=== PATIENT | female | born 1975 | race Caucasian/White ===

== ENCOUNTER 2018-05-27 21:38 | Emergency (ER) | payer MEDICAID, OTHER ==
[~2018-05-27] VITALS: Ht 172.7 cm; Wt 88.5 kg
[2018-05-27 21:50] VITALS: BP 137/80
== END 2018-05-27 22:31 | disposition home or self-care (01) ==
LOC: ER 21:41
DX: T16.1XXA Foreign body in right ear, initial encounter (principal); F10.10 Alcohol abuse, uncomplicated; F17.200 Nicotine dependence, unspecified, uncomplicated; Y90.9 Presence of alcohol in blood, level not specified; Z98.84 Bariatric surgery status; W45.8XXA Other foreign body or object entering through skin, initial encounter; Y93.89 Activity, other specified; Y92.89 Other specified places as the place of occurrence of the external cause; Y99.8 Other external cause status
CPT/HCPCS: 69200; 99284; A4606; Z7610

== ENCOUNTER 2018-08-15 09:30 | Emergency (ER) | payer OTHER ==
[~2018-08-15] VITALS: Ht 165.1 cm; Wt 65.8 kg
[2018-08-15 09:48] VITALS: BP 145/110
[2018-08-15] MEDS ORDERED: DEXAMETHASONE SOD PHOSPHATE 10 MG/ML VIAL ONE (10:29)
[2018-08-15] MEDS ORDERED: DEXAMETHASONE SOD PHOSPHATE 10 MG/ML VIAL IM ONE (10:30)
== END 2018-08-15 10:42 | disposition home or self-care (01) ==
LOC: ER 09:38
DX: J02.9 Acute pharyngitis, unspecified (principal); Z98.890 Other specified postprocedural states
CPT/HCPCS: 96372; 99283; J1100

== ENCOUNTER 2018-10-12 18:27 | Emergency (ER) | payer OTHER ==
[~2018-10-12] VITALS: Ht 152.4 cm; Wt 77.1 kg
[2018-10-12 18:39] VITALS: BP 115/83
== END 2018-10-12 19:56 | disposition home or self-care (01) ==
LOC: ER 18:28
DX: L03.114 Cellulitis of left upper limb (principal); Z98.890 Other specified postprocedural states
CPT/HCPCS: 73130-TC

== ENCOUNTER 2019-02-28 10:57 | Emergency (ER) | payer OTHER ==
[~2019-02-28] VITALS: Ht 170.2 cm; Wt 81.6 kg
[2019-02-28 11:33] VITALS: BP 130/72
[2019-02-28] MEDS ORDERED: KETOROLAC TROMETHAMINE INJ 60 MG/2 ML VIAL IM ONE (12:09)
[2019-02-28] MEDS: KETOROLAC TROMETHAMINE INJ 60 MG/2 ML VIAL IM ONE (12:13)
[2019-02-28 12:30] LABS: BILIRUBIN,URINE Negative (NEGATIVE); BLOOD, URINE Small Ery/uL (NEGATIVE); COLOR,URINE Yellow (YELLOW); KETONES,URINE Negative (NEGATIVE); LEUKOCYTE ESTERASE ,URINE Negative (NEGATIVE); NITRITE, URINE Negative (NEGATIVE); PROTEIN,URINE Negative (NEGATIVE); UGLUCOSE Negative (NEGATIVE); UROBILINOGEN,URINE 0.2 EU/dL (0.2)
[2019-02-28 12:35] LABS: APPEARANCE,URINE SLIGHTLY HAZY (CLEAR)
[2019-02-28 12:46] LABS: WBC,URINE 0-2 /HPF (0-3)
[2019-02-28 12:47] LABS: BACTERIA,URINE Few /HPF (None Seen); SQUAMOUS EPITHELIAL CELL,UR Moderate /HPF (None Seen)
== END 2019-02-28 14:05 | disposition home or self-care (01) ==
LOC: ER 10:57
DX: M48.061 Spinal stenosis, lumbar region without neurogenic claudication (principal); F17.200 Nicotine dependence, unspecified, uncomplicated
CPT/HCPCS: 72131; 81001; 84703; 96372; 99284; J1885; 81000-TC